=== PATIENT | female | born 1980 | race Caucasian/White ===

== ENCOUNTER 2022-12-28 11:18 | Emergency (ER) | payer BC, OTHER ==
[2022-12-28 11:35] VITALS: BP 116/95
[2022-12-28] MEDS ORDERED: SODIUM CHLORIDE 0.9% 1,000 ML IV STA (11:41)
--- NOTE | 2022-12-28 11:44 | ED Physician Documentation ---
History of Present Illness - Stated complaint Stated Complaint: ETOH - Chief complaint Chief Complaint: MHE - Additonal information Additional information: 42-year-old female is brought to the emergency department by her father for evaluation of alcohol abuse. Reportedly was at [facility] and discharged about a week ago. She got some upsetting news about custody of her children and has been binge drinking for the last 5 days. Dad states that she had 2 large water glasses full of vodka prior to arrival. States his daughter is hallucinating. On presentation to the emergency department the patient is alert ambulatory. States that she knows she is hallucinating and just seeing things. She states she does not want to go back to detox. Dad states he would like her back in detox. Dad reports that he has been making multiple phone calls on behalf of the patient in order to try and get help with alcohol cessation. At time of my exam she does appear clinically intoxicated and smells healvily of etoh Review of Systems Unable to obtain: Intoxicated PD PAST MEDICAL HISTORY - Present Medications Home Medications: Ambulatory Orders Medication Instructions Recorded Confirmed chlordiazePOXIDE [Librium] 25 mg PO Q6H PRN #8 cap 12/28/22 - Allergies Allergies/Adverse Reactions: Allergies Allergy/AdvReac Type Severity Reaction Status Date / Time No Known Drug Allergies Allergy Verified 12/28/22 11:34 PD ED PE NORMAL - General General: Alert and oriented X 3, No acute distress, Well developed/nourished - HEENT HEENT: PERRL - Neck Neck: Supple, no meningeal sign, No adenopathy - Cardiac Cardiac: RRR, No murmur - Respiratory Respiratory: No respiratory distress - Abdomen Abdomen: Normal bowel sounds, Soft, Non tender - Derm Derm: Normal color, Warm and dry, No rash - Extremities Extremities: No deformity - Neuro Neuro: Alert and oriented X 3, type proof reproducer 2-12 intact Eye Opening: Spontaneous Motor: Obeys Commands Verbal: Oriented GCS Score: 15 - Psych Psych: Other (Appears clinically intoxicated.) Results - Vitals Vitals: Vital Signs - 24 hr 12/28/22 11:30 Temperature 36.7 C Heart Rate 91 Respiratory 20 Rate Blood Pressure 116/95 H O2 Saturation 100 Oxygen O2 Source Room air - Labs Labs: Laboratory Tests 12/28/22 12/28/22 12/28/22 11:45 11:45 11:58 WBC 8.8 RBC 5.25 Hgb 16.1 H Hct 47.8 H MCV 91.0 MCH 30.7 MCHC 33.7 RDW 14.2 Plt Count 419 MPV 8.9 Neut # (Auto) 6.0 Lymph # (Auto) 1.7 [place] # (Auto) 1.0 Eos # (Auto) 0.0 Baso # (Auto) 0.1 Absolute Nucleated RBC 0.00 Nucleated RBC % 0.0 Sodium 140 Potassium 3.5 Chloride 100 L Carbon Dioxide 28 Anion Gap 12.0 BUN 20 Creatinine 0.7 Estimated GFR (MDRD) 93 Glucose 135 H Calcium 8.6 Total Bilirubin 1.0 AST 50 H ALT 88 H Alkaline Phosphatase 79 Total Protein 7.7 Albumin 4.4 Globulin 3.3 Albumin/Globulin Ratio 1.3 Lipase 27 Urine Color YELLOW Urine Clarity SL. CLOUDY Urine pH 6.0 Ur Specific [place] 1.025 Urine Protein 30 H Urine Glucose (UA) NEGATIVE Urine Ketones TRACE Urine Occult Blood MODERATE H Urine Nitrite NEGATIVE Urine Bilirubin NEGATIVE Urine Urobilinogen 0.2 (NORMAL) Ur Leukocyte Esterase TRACE H Urine RBC 6-10 H Urine WBC 4-5 Ur Squamous Epith Cells MANY Squamous H Urine Bacteria Moderate H Ur Microscopic Review INDICATED Urine Culture Comments NOT INDICATED Urine HCG, Qual NEGATIVE Ethyl Alcohol 412.8 PD Medical Decision Making - ED course Complexity details: reviewed results, re-evaluated patient, d/w patient ED course: 42-year-old female who has a longstanding history of alcohol abuse presents the emergency department at the behest of her father for evaluation of alcohol use. She was discharged from [facility] about 1 week ago. She remained sober for 2 days before she began binge drinking about 5 days ago. He would like her to be admitted to detox. However the patient does not want to go to detox. She simply wants to go home. I was able to obtain CBC, electrolytes urine alcohol level. Blood alcohol level is 412 and patient presents clinically intoxicated. She does have some AST ALT elevation which likely is alcoholic hepatitis but given a normal bilirubin I do not believe that she has developed cirrhosis. She is not having any melena or hematochezia. I implored the patient to stay and even offered inpatient withdrawal though she declined. Her father is frustrated but I cannot compel the patient to remain in the emergency department any further. I have sent a prescription for Librium to the [facility] in [place] which patient seemed thankful for. I discussed with them extensively that abrupt alcohol cessation is life-threatening and that when she was ready to enter detox to begin calling around. Patient is hesitant to return to [facility] I did give them the name of [facility]. They were notified that should she want to return immediately there would be no questions asked. Departure - Departure Disposition: Home, Self Care Clinical Impression: Alcohol abuse Condition: Stable Record reviewed to determine appropriate education?: Yes Instructions: Addiction Alcohol Prescriptions: chlordiazePOXIDE [Librium] 25 mg PO Q6H PRN #8 cap PRN Reason: Alcohol Withdrawal Comments: Dionna was seen in the emergency department today in order to see if she was ready to get help to stop drinking. She is clinically intoxicated. Blood alcohol is 412. She does have a history of alcohol withdrawal requiring detox. She was offered the opportunity to try and obtain a detox bed today but she has declined to stay. When Dionna is ready to stop drinking please continue to reach out to detox unit. [facility] does have a detox unit and it may be helpful for her to be seen there since she no longer wants to go to [facility]. I have prescribed some Librium to be used 3-4 times a day for symptoms of alcohol withdrawal. Stopping drinking suddenly can be life-threatening. If you have concerns of alcohol withdrawal and she does not have access to alcohol she does need to return immediately to the emergency department. Dionna I wish you luck in your journey
[2022-12-28 11:50] LABS: BASOPHILS # (AUTO) 0.1 10^3/uL (0.0-0.1); EOSINOPHILS % (AUTO) 0.3 %; HCT - HEMATOCRIT 47.8 % (37.0-47.0); HGB - HEMOGLOBIN 16.1 g/dL (12.0-16.0); LYMPHOCYTES # (AUTO) 1.7 10^3/uL (1.5-3.5); LYMPHOCYTES % (AUTO) 18.9 %; MEAN CORPUSCULAR HEMOGLOBIN 30.7 pg (27.0-31.0); MEAN CORPUSCULAR HGB CONC 33.7 g/dL (32.0-36.0); MEAN PLATELET VOLUME 8.9 fL (7.9-10.8); MONOCYTES % (AUTO) 11.6 %; PLT - PLATELET COUNT 419 10^3/uL (130-450); RED BLOOD COUNT 5.25 10^6/uL (4.20-5.40); RED CELL DISTRIBUTION WIDTH 14.2 % (12.0-15.0); WHITE BLOOD COUNT 8.8 x10^3/uL (4.8-10.8)
[2022-12-28 12:08] LABS: ALBUMIN 4.4 g/dL (3.2-5.5); ALBUMIN/GLOBULIN RATIO 1.3 (1.0-2.2); CALCIUM 8.6 mg/dL (8.5-10.3); CREATININE 0.7 mg/dL (0.4-1.0); ETOH - ETHANOL 412.8 mg/dL; POTASSIUM 3.5 mmol/L (3.5-5.0); TOTAL PROTEIN 7.7 g/dL (6.7-8.2)
[2022-12-28 12:09] LABS: BILIRUBIN,URINE NEGATIVE (NEGATIVE); GLUCOSE, URINE (UA) NEGATIVE (NEGATIVE); KETONES,URINE (UA) TRACE mg/dL (NEGATIVE); LEUKOCYTE ESTERASE, URINE TRACE (NEGATIVE); NITRITE,URINE NEGATIVE (NEGATIVE); OCCULT BLOOD,URINE MODERATE (NEGATIVE); PROTEIN,URINE 30 mg/dL (NEGATIVE); UROBILINOGEN,URINE 0.2 (NORMAL) E.U./dL (NORMAL)
[2022-12-28 12:11] LABS: CLARITY,URINE SL. CLOUDY (CLEAR); HCG UR QUAL NEGATIVE
[2022-12-28] MEDS ORDERED: THIAMINE INJ 100 MG, FOLIC ACID INJ 1 MG in SODIUM CHLORIDE 0.9% 1,000 ML IV STA (12:23)
[2022-12-28 12:25] LABS: BACTERIA,URINE Moderate /HPF (None Seen); SQUAMOUS EPITHELIAL CELL,UR MANY Squamous (<= Few)
== END 2022-12-28 12:46 | disposition home or self-care (01) ==
LOC: ED 11:18
DX: F10.129 Alcohol abuse with intoxication, unspecified (principal); Y90.8 Blood alcohol level of 240 mg/100 ml or more; R74.01 Elevation of levels of liver transaminase levels
CPT/HCPCS: 36415; 80053; 80320; 81001; 81025; 83690; 85025; 99283; 99284; J3411; 81003; 87086